=== PATIENT | female | born 1930 | race Caucasian/White ===

== ENCOUNTER 2016-12-26 09:35 | Inpatient (IN) | payer MEDICARE, OTHER ==
[~2016-12-26] VITALS: Ht 157.5 cm; Wt 66.5 kg
[~2016-12-26 09:35] MED LIST: ASPIRIN CHEWABL81 MG PO; CALCIUM 500 +1 EAC3 PO; CERTAGEN1 EACH PO; COLACE100 MG PO; COUMADIN5 MG PO; FLONASE ALLER15.8 ML; GLUCOSAMINE HC500 MG PO; LEXAPRO10 MG PO; MULTAQ400 MG PO; NORVASC5 MG PO; PRAVACHOL20 MG PO; PROBIOTIC1 EAC1 PO; TYLENOL EXTRA500 MG PO; XARELTO20 MG PO; ZANTAC150 MG PO; ZESTRIL40 MG PO; ZOCOR 20MG TABL20 MG PO
[2016-12-26 10:08] LABS: BASOPHIL 0.4 % (0-2); EOSINOPHIL 0.8 % (0-7); HCT 42.4 % (37.0-47.0); HGB 14.4 g/dl (12.5-16.0); LYMPHOCYTE 15.5 % (15-48); MCH 30.8 pg (25.0-31.0); MCV 90.6 fL (78.0-100.0); MPV 9.8 fL (6.0-9.5); NEUTROPHIL 72.3 % (41-80); PLT 266 K/uL (150-400); RBC 4.68 M/uL (4.20-5.40); RDW 13.3 % (11.5-14.0); WBC 7.7 K/uL (4.0-10.5)
[2016-12-26 10:26] LABS: INR 1.94 (0.9-1.2); PROTHROMBIN TIME 21.6 SECONDS (11.7-14.0); PTT 42.2 SECONDS (23.2-31.4)
[2016-12-26 10:31] LABS: ALBUMIN 4.1 g/dL (3.4-4.8); BILIRUBIN - TOTAL 0.3 mg/dL (0.1-1.0); CREATININE 0.9 mg/dL (0.5-1.0); GLOBULIN (CALCULATION) 2.4 g/dL (2.2-4.2); POTASSIUM 4.2 mmol/L (3.5-5.1); TOTAL PROTEIN 6.5 g/dL (6.4-8.3)
[2016-12-26 12:24] LABS: FT4 (FREE T4) 1.01 ng/dL (0.93-1.70); TSH (THYROID STIM HORMONE) 1.98 uIU/mL (0.270-4.200)
[2016-12-27 04:31] LABS: HCT 41.7 % (37.0-47.0); HGB 13.8 g/dl (12.5-16.0); MCH 30.7 pg (25.0-31.0); MCHC 33.1 g/dL (32.0-36.0); MCV 92.7 fL (78.0-100.0); MPV 9.9 fL (6.0-9.5); RBC 4.5 M/uL (4.20-5.40); RDW 13.1 % (11.5-14.0); WBC 7.9 K/uL (4.0-10.5)
[2016-12-27 04:41] LABS: INR 2.25 (0.9-1.2); PROTHROMBIN TIME 24.2 SECONDS (11.7-14.0)
[2016-12-27 04:49] LABS: CREATININE 0.9 mg/dL (0.5-1.0); POTASSIUM 4.6 mmol/L (3.5-5.1)
[2016-12-28 04:34] LABS: HCT 42.2 % (37.0-47.0); HGB 13.9 g/dl (12.5-16.0); MCH 30.4 pg (25.0-31.0); MCHC 32.9 g/dL (32.0-36.0); MCV 92.3 fL (78.0-100.0); RBC 4.57 M/uL (4.20-5.40); WBC 7.7 K/uL (4.0-10.5)
[2016-12-28 04:42] LABS: INR 2.42 (0.9-1.2); PROTHROMBIN TIME 25.7 SECONDS (11.7-14.0)
[2016-12-28 04:54] LABS: CREATININE 0.8 mg/dL (0.5-1.0); POTASSIUM 4.2 mmol/L (3.5-5.1)
--- NOTE | 2016-12-28 13:50 | NUR ---
PT UP AMBULATING X 1 STAND BY ASSISTANCE;AMABULATED FROM TCU RM 5 AROUND COULTER THROUGH ICU & BACK TO TCU RM 5 W/O DIFFICULTY;HR REMAIN 60'S;NSR. DENIED SOA TOLERATED WELL.
[2016-12-28] MEDS ORDERED: NORVASC5 MG PO (14:49)
[2016-12-28] MEDS ORDERED: BETAPACE80 MG PO (14:49)
--- NOTE | 2016-12-28 14:50 | NUR ---
IV SITE D/C'D;PRESSURE DRESSING APPLIED;PT TOLERATED WELL. 1500 D/C & RX INSTRUCTIONS GIVEN;PT VERBALIZED UNDERSTANDING;D/C FROM FACILITY PENDING ON RIDE.
[2016-12-28] MEDS ORDERED: COUMADIN2.5 MG PO (14:58)
[2016-12-28] MEDS ORDERED: SYSTANE BALANCE10 ML OU (14:58)
[2016-12-28] MEDS ORDERED: MILK OF MA400 MG/5 M PO (14:58)
--- NOTE | 2016-12-28 15:55 | NUR ---
PT'S RIDE HERE;DISCHARGED FROM FACILITY W/O INCIDENT.
== END 2016-12-28 15:55 | disposition home or self-care (01) | DRG 310 ==
LOC: FER 09:35 → FTCU 12:00
PROVIDERS: Internal Medicine; ADMIT Internal Medicine
DX: I48.0 Paroxysmal atrial fibrillation (principal); K26.9 Duodenal ulcer, unspecified as acute or chronic, without hemorrhage or perforation; I10 Essential (primary) hypertension; F41.9 Anxiety disorder, unspecified; E78.5 Hyperlipidemia, unspecified; M19.90 Unspecified osteoarthritis, unspecified site; E05.90 Thyrotoxicosis, unspecified without thyrotoxic crisis or storm; K57.90 Diverticulosis of intestine, part unspecified, without perforation or abscess without bleeding; Z85.828 Personal history of other malignant neoplasm of skin; Z79.899 Other long term (current) drug therapy; Z79.01 Long term (current) use of anticoagulants
CPT/HCPCS: 36415; 71010; 80048; 80053; 83690; 84439; 84443; 84484; 85025; 85610; 85730; 93005; J1160